=== PATIENT | female | born 1940 | race Caucasian/White ===

== ENCOUNTER → 2016-11-24 | Outpatient (CLI) | payer MEDICARE, OTHER ==
--- NOTE | 2016-11-24 16:47 | RAD ---
Lumbar spine radiograph 3 views 11/24/2016 Clinical indication: Sciatica, left leg, low back pain for 2 years. Comparison: None. Findings: Mild levoconvex lumbar scoliosis. Vertebral body heights are maintained. 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 Mild disc degeneration at L3-L4 and L4-L5. Impression: 1. No acute lumbar spine fracture or subluxation. 2. Multilevel lumbar spondylosis, greatest to moderate degree, at L1-L2, L2-L3 and L5-S1 3. Mild levoconvex lumbar scoliosis.
== END | disposition home or self-care (01) ==
LOC: DXRADRC 14:56
PROVIDERS: ATTEND Nurse Practitioner Family
DX: M54.42 Lumbago with sciatica, left side (principal); M47.896 Other spondylosis, lumbar region; M41.86 Other forms of scoliosis, lumbar region
CPT/HCPCS: 72100

== ENCOUNTER → 2020-10-25 | Outpatient (CLI) | payer MEDICARE, OTHER ==
--- NOTE | 2020-10-25 08:50 | RAD ---
XR THORACIC SPINE 3VIEWS, XR LUMBAR SPINE 4+V History: Reason: BACK PAIN, NO KNOW FALL OR TRAUMA TO BACK / Spl. Instructions: / History: Technique: 3 views thoracic spine and 5 views lumbar spine. Comparison: None. Findings: Thoracic spine: Normal vertebral body height and alignment. No acute fracture. Mild degenerative disc changes throughout the thoracic spine. Partially imaged cervical spondylosis. Lumbar spine: Mild leftward curvature the lumbar spine. Mild retrolisthesis L2 on L3 and L3 on L4. No rmal vertebral body height. No acute fracture. Moderate degenerative disc changes most prominent L2-L 3, L3-L4 and L5-S1. Multilevel facet arthropathy. Impression: 1. Moderate multilevel lumbar spondylosis with leftward curvature. 2. Mild multilevel thoracic spondylosis. Electronically signed by: Mack Del Cid DO (10/25/2020 8:48 AM) [id number]
== END ==
LOC: PMG 08:03
PROVIDERS: ATTEND Nurse Practitioner Family
DX: M47.813 Spondylosis without myelopathy or radiculopathy, cervicothoracic region (principal); M47.816 Spondylosis without myelopathy or radiculopathy, lumbar region; M51.37 Other intervertebral disc degeneration, lumbosacral region; M51.34 Other intervertebral disc degeneration, thoracic region
CPT/HCPCS: 72072; 72110

== ENCOUNTER → 2020-11-23 | Outpatient (CLI) | payer MEDICARE, OTHER ==
--- NOTE | 2020-11-23 12:12 | RAD ---
EXAM: DUAL ENERGY X-RAY ABSORPTIOMETRY (DEXA). HISTORY: Postmenopausal screening. FINDINGS: The lowest measured T-score is -1.2 in the right hip is 0.803, based on a bone mineral dens ity of g/cm^2. Refer to the worksheets for full detail. No comparison examinations are available. IMPRESSION: 1. Low bone mass. Bone mineral density yields a T-score between -1.0 and -2.5. Fracture risk is incre ased. 2. FRAX report: Not calculated. METHODOLOGY: Dual energy x-ray absorptiometry was performed to measure bone mineral density. The foll owing analysis is based on the 2019 Official Positions of the International Society for Clinical Dens itometry: Measurements of the hips and the average of L1-L4 are preferred. When the spine and/or hip cannot be feasibly measured or interpreted, or in the setting of hyperparathyroidism, distal radial bone minera l density may be measured. The lumbar spine T-score is based on the average bone mineral density of L1-L4. In the setting of art ifact or anatomic abnormality, some lumbar levels may be excluded, and the remaining levels used for calculation. A single lumbar level is not used for diagnosis, and if only a single level is available for assessment, another anatomic site will be used to assign a diagnosis. The hip T-score is based on the bone mineral density measurement of the femoral neck or total proxima l femur of either side, whichever is lowest. Bilateral mean values are not used for diagnosis. The forearm T-score is derived from 33% of the distal radius of the nondominant forearm. Electronically signed by: Catherine Yusuf MD (11/23/2020 12:09 PM) [id number]
== END ==
LOC: DXRAD 11:20
PROVIDERS: ATTEND Physician Assistant Medical
DX: M89.8X8 Other specified disorders of bone, other site (principal); Z78.0 Asymptomatic menopausal state
CPT/HCPCS: 77080